=== PATIENT | male | born 1935 | race Caucasian/White ===

== ENCOUNTER → 2017-10-12 | Outpatient (CLI) | payer MEDICARE, OTHER ==
[~2017-10-12] MED LIST: ASPIRIN ADULT L81 M1 PO; GLYBURIDE1.25 MG PO; METFORMIN500 MG PO; METOPROLOL SUC100 M2 PO; OXYBUTYNIN CHLOR5 MG PO; ZESTRIL5 MG PO; ZOCOR80 MG PO
== END | disposition home or self-care (01) ==
LOC: RAD 10:40
DX: J44.9 Chronic obstructive pulmonary disease, unspecified (principal); R06.00 Dyspnea, unspecified; E11.9 Type 2 diabetes mellitus without complications; I10 Essential (primary) hypertension; I25.10 Atherosclerotic heart disease of native coronary artery without angina pectoris; Z87.891 Personal history of nicotine dependence

== ENCOUNTER 2017-11-05 12:35 | Inpatient (IN) | payer MEDICARE ==
[~2017-11-05] VITALS: Ht 180.3 cm; Wt 84.0 kg
--- NOTE | ~2017-11-05 | PR ---
[place], [place] PROGRESS NOTE NAME: REYES SCHAEFFER UNIT #: [id number] ROOM: 524 DOCTOR: SAAD HARTLEY MD BIRTHDATE: [birth year] DOS: 11/08/2017 SUBJECTIVE: The patient is doing better. Liver biopsy was canceled because the patient is on aspirin and is scheduled for a liver biopsy on . PHYSICAL EXAMINATION: GENERAL: A pleasant gentleman, in no apparent distress. VITAL SIGNS: Stable. He is afebrile. Blood pressure 122/70, respirations 18, pulse 96, temperature 97.6. HEENT: Normocephalic, atraumatic NECK AND THYROID: Supple. No JVD, thyromegaly, or lymphadenopathy. HEART: Normal S1, S2. Regular rate and rhythm. LUNGS: Clear to auscultation and percussion. ABDOMEN: Soft. Nontender, nondistended. Bowel sounds present. EXTREMITIES: Normal ROM. No clubbing. No edema. LABORATORY DATA: White count of 7.3, hemoglobin 12.5, hematocrit 38.0, platelet count 187. Sodium 136, potassium 3.7, chloride 101, bicarbonate 29, EGFR more than 60. Ejection fraction of 20%. 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 PLAN: We will follow him as an outpatient after the biopsy is done. Depending on it, further intervention. Discussed with the patient. SAAD HARTLEY MD CM:PNTRANS [id number] SAAD HARTLEY MD 11/09/17 0023 interface
--- NOTE | ~2017-11-05 | CON ---
[place], [place] REPORT OF CONSULTATION NAME: REYES SCHAEFFER UNIT #: [id number] ROOM: 524 DOCTOR: SAAD HARTLEY MD BIRTHDATE: [birth year] DOS: 11/07/2017 HISTORY OF PRESENT ILLNESS: The patient is a pleasant 82-year-old gentleman who looks younger than his stated age. He states that he had flu in August and the symptoms resolved, but he started complaining of feeling progressively weaker since then. He also had some trouble walking and had several falls. On the day of admission, he fell twice and subsequently he has lost about 40 pounds since August and has swelling in the lower extremity. Subsequently, he was given to the ER and had a CT of the chest, abdomen, and pelvis done, which showed possible metastatic ____ to the liver. Of unknown primary and was consulted for further evaluation and management. PAST MEDICAL HISTORY: Significant for basal cell carcinoma, coronary artery disease, diabetes mellitus type 2, hyperlipidemia, hypertension, and myocardial infarction. PAST SURGICAL HISTORY: Coronary artery bypass graft ____ disease, had a ____ colonoscopy. SOCIAL HISTORY: No smoking, drinking, or drug abuse. He used to smoke for 10 years, quit 50 years ago. FAMILY HISTORY: Father at 89. Mother at 65 of colon cancer. ALLERGIES: No known allergies. MEDICATIONS: Aspirin, furosemide, glyburide, levothyroxine, lisinopril, metformin, metoprolol, simvastatin. REVIEW OF SYSTEMS CONSTITUTIONAL: No chills. No fatigue. No fever. No loss of appetite. No night sweats. No weakness. No weight loss. HEENT: No trouble swallowing. No loss of smell. No loss of hearing. No double vision. No pain. No discharge. ENT AND RESPIRATORY: No wheeze. No sore throat. No change in voice. No hearing loss. No nose bleed. No cough. No trouble breathing through nose. No shortness of breath. No coughing up blood. No epistaxis. CARDIOVASCULAR: No chest pain. No dizziness. No irregular heartbeat. No leg edema. No pain in legs while walking. No palpitations. No shortness of breath. DERMATOLOGIC: No acne. No hives. No laceration. No mole. No rash. ENDOCRINE: No cold intolerance. No diabetes. No fatigue. No hot flashes. No polydipsia. No polyuria. No urinating frequently. No weight loss. HEMATOLOGIC AND LYMPH: No fatigue. No easy bruising. GASTROENTEROLOGIC: No change in bowel habits. No indigestion. No frequent bloating. No vomiting blood. No abdominal cramping. No nausea. No heartburn. No vomiting. No abdominal pain. No dysphagia. No diarrhea. No constipation. No blood in stool. MALE REPRODUCTIVE: No testicular pain. No difficulty with erection. No diminished sexual drive. No penile discharge. [place], [place] REPORT OF CONSULTATION NAME: REYES SCHAEFFER UNIT #: [id number] ROOM: 524 DOCTOR: SAAD HARTLEY MD BIRTHDATE: [birth year] MUSCULOSKELETAL: No back pain. No muscle pain or weakness. No neck pain. No tingling/numbness. No swelling/bruising. No osteoporosis treatment. OPTHALMOLOGIC: No double vision. No diminished vision. No loss of vision. UROLOGIC: No dysuria. No frequent nighttime urination. No pain with urination. No difficulty urinating. No blood in urine. No frequent urination. No urinary incontinence. NEUROLOGIC: No loss of sensation in specific body area. No vertigo. No burning pain in feet. No trouble with balance. No trouble with coordination. No loss of consciousness. No loss of feeling/power. No confusion. No headache. No tingling/numbness. PSYCHOLOGIC: No tinnitus. No headaches. No shortness of breath. No weight decrease. No nausea. No vomiting. No abdominal discomfort. No constipation. No diarrhea. No depression. No anxiety. PHYSICAL EXAMINATION: VITAL SIGNS: Stable. Afebrile. GENERAL: General appearance: Pleasant gentleman, no apparent distress. HEENT: Oral mucosa appears intact. The external ears are normal in appearance. Nares are patent without lesions, exudates, erythema, or inflammation. Tongue is symmetrical. Uvula is midline. NECK AND THYROID: Neck supple without palpable masses. Trachea is midline. No thyromegaly. No carotid bruit or JVD. BREASTS: Normal. Nipples unremarkable. No drainage. No lumps felt on either side. HEART: Normal S1, S2, without significant murmur, rub, or gallop. LUNGS: Clear to auscultation and percussion with good air entry bilaterally. The patient is breathing easily without the use of accessory muscles. Diaphragmatic excursions are intact. ABDOMEN: No costovertebral angle tenderness. Soft. No organomegaly or masses. Nontender. No hernias present. Liver and spleen are not palpable. LYMPHATIC: No adenopathy noted in the cervical, supraclavicular, axillary, or inguinal regions. NEUROLOGIC: Nonfocal. Oriented to person, place, and time. MENTAL STATUS: Appropriate for mood and affect. PERIPHERAL PULSES: No varicosities. Femoral and pedal pulses are palpable. EXTREMITIES: Without cyanosis, clubbing, or edema. No gross anomalies. LABORATORY DATA: On 11/05/2017. Sodium 139, potassium 4.8, chloride 104, bicarbonate 26. EGFR more than 60. White count of 7.7, hemoglobin 13.3, hematocrit 39.3, platelet count of 321,000. RADIOLOGY: CT of the chest showed some pleural based nodularity. There are two right-sided 5-mm nodules. There is a perifissural nodule in the right measuring 7 mm of the scarring in the right lung base. CT of the abdomen showed multiple low attenuation lesions throughout the liver, most compatible with metastases, largest in the right lobe measures 6.5 cm and there was also some punctate calculi in the right kidney without obstruction. There are also some retroperitoneal lymph nodes as well as small abdominal ascites and moderate amount of pelvic ascites. [place], [place] REPORT OF CONSULTATION NAME: REYES SCHAEFFER UNIT #: [id number] ROOM: 524 DOCTOR: SAAD HARTLEY MD BIRTHDATE: [birth year] ASSESSMENT: 1. Possible metastatic disease to the liver of unknown primary. 2. Generalized weakness with 40-pound weight loss since August. 3. Nonspecific elevation of transaminases and lactic acid dehydrogenase. PLAN: I have discussed with the patient in detail. We will go ahead with CT-guided biopsy of the liver. He may also need upper and lower endoscopy that can be done as an outpatient. Tumor markers have been ordered depending on the further intervention. I had a detailed discussion with the patient about it, he seemed to understand. Ample time was given to the patient to ask me questions. We will follow. Thanks for consulting and letting me participating in the care of this interesting patient. SAAD HARTLEY MD CM:CONSTR:REPORT OF CONSULTATION 1434 11/08/17 0501 interface
[2017-11-05 12:50] VITALS: BP 138/85
[2017-11-05 13:14] LABS: BILIRUBIN NEGATIVE (NEGATIVE); BLOOD NEGATIVE (NEGATIVE); CLARITY SL CLOUDY (CLEAR); COLOR YELLOW (YELLOW); GLUCOSE NEGATIVE (NEGATIVE); KETONE NEGATIVE (NEGATIVE); LEUKO ESTERASE NEGATIVE (NEGATIVE); NITRITE NEGATIVE (NEGATIVE); PH 5.5 (5.0-9.0)
[2017-11-05 13:23] LABS: BASO % 0.3 % (0.0-1.0); EOS # 0.1 10*3/uL (0.0-0.4); EOS % 1.4 % (1.0-4.0); HEMATOCRIT 39.3 % (42.0-52.0); HEMOGLOBIN 13.3 g/dl (14.0-18.0); LYMPH # 1.6 10*3/uL (1.3-4.4); LYMPH % 21.2 % (27.0-41.0); MEAN CELL VOLUME 92.5 fl (80.0-94.0); MEAN CORPUSCULAR HGB 31.3 pg (27.0-31.0); MEAN CORPUSCULAR HGB CONC 33.8 g/dl (33.0-37.0); MEAN PLATELET VOLUME 12.7 fl (9.6-12.3); MONO # 0.9 10*3/uL (0.1-1.0); MONO % 12.1 % (3.0-9.0); NEUT % 64.6 % (47.0-73.0); PLATELET COUNT AUTOMATED 321 10*3/uL (130-400); RED BLOOD COUNT 4.25 10*6/uL (4.50-5.90); RED CELL DISTRI WIDTH 15.3 % (0-14.5); WHITE BLOOD COUNT 7.7 10*3/uL (4.8-10.8)
[2017-11-05 13:30] VITALS: BP 138/84
[2017-11-05 13:30] LABS: BACTERIA TRACE; MUCOUS 1+
[2017-11-05 14:16] LABS: ALBUMIN 2.4 gm/dl (3.1-4.5); ALKALINE PHOSPHATASE 182 U/L (45-117); BUN 22 mg/dl (7-24); CHLORIDE 104 mmol/L (98-107); CREATININE 1.07 mg/dL (0.70-1.30); POTASSIUM 4.8 mmol/L (3.5-5.1); SGOT/AST 87 IU/L (3-35); SGPT/ALT 20 U/L (12-78); SODIUM 139 mmol/L (136-145)
[2017-11-05 14:28] VITALS: BP 121/71
[2017-11-05 15:27] VITALS: BP 134/80
[2017-11-05 16:20] VITALS: BP 142/79
[2017-11-05] MEDS ORDERED: ZESTRIL10 MG PO (16:31)
[2017-11-05] MEDS ORDERED: Metoprolol Suc200 MG PO (16:33)
[2017-11-05] MEDS ORDERED: FUROSEMIDE20 M1 PO (16:35)
[2017-11-05] MEDS ORDERED: SYNTHROID25 MCG PO (16:37)
[2017-11-05 20:00] VITALS: BP 131/67
[2017-11-06] VITALS: BP 131/78
[2017-11-06 06:56] LABS: BASO % 0.3 % (0.0-1.0); EOS # 0.1 10*3/uL (0.0-0.4); EOS % 1.9 % (1.0-4.0); HEMATOCRIT 40.1 % (42.0-52.0); HEMOGLOBIN 13.2 g/dl (14.0-18.0); LYMPH # 1.3 10*3/uL (1.3-4.4); LYMPH % 18.7 % (27.0-41.0); MEAN CELL VOLUME 93.5 fl (80.0-94.0); MEAN CORPUSCULAR HGB 30.8 pg (27.0-31.0); MEAN CORPUSCULAR HGB CONC 32.9 g/dl (33.0-37.0); MEAN PLATELET VOLUME 11.3 fl (9.6-12.3); MONO % 14.5 % (3.0-9.0); NEUT # 4.5 10*3/uL (2.3-7.9); RED BLOOD COUNT 4.29 10*6/uL (4.50-5.90); RED CELL DISTRI WIDTH 14.9 % (0-14.5)
[2017-11-06 06:58] LABS: PLATELET COUNT AUTOMATED 192 10*3/uL (130-400)
[2017-11-06 07:02] LABS: BUN 18 mg/dl (7-24); CHLORIDE 103 mmol/L (98-107); CHOLESTEROL 91 mg/dL (<200); CREATININE 0.98 mg/dL (0.70-1.30); HDL CHOLESTEROL 23 mg/dl (40-60); LDL CHOLESTEROL 45 mg/dL (9-159); PHOSPHOROUS 2.6 mg/dL (2.5-4.9); TRIGLYCERIDES 116 mg/dl (<150); VLDL CHOLESTEROL 23 mg/dL (6-40)
[2017-11-06 07:17] LABS: SODIUM 139 mmol/L (136-145)
[2017-11-06 07:20] LABS: POTASSIUM 3.7 mmol/L (3.5-5.1)
[2017-11-06 07:24] LABS: VITAMIN D, 25-HYDROXY 26.1 ng/mL (30-100)
[2017-11-06 08:00] VITALS: BP 121/76
[2017-11-06 14:00] VITALS: BP 123/66
[2017-11-06 16:00] VITALS: BP 134/71
[2017-11-06 20:00] VITALS: BP 134/80
[2017-11-07] VITALS: BP 125/76
[2017-11-07 06:11] LABS: BASO % 0.4 % (0.0-1.0); EOS # 0.1 10*3/uL (0.0-0.4); EOS % 1.9 % (1.0-4.0); HEMATOCRIT 37.4 % (42.0-52.0); HEMOGLOBIN 12.4 g/dl (14.0-18.0); LYMPH # 1.5 10*3/uL (1.3-4.4); LYMPH % 20.6 % (27.0-41.0); MEAN CELL VOLUME 92.8 fl (80.0-94.0); MEAN CORPUSCULAR HGB 30.8 pg (27.0-31.0); MEAN CORPUSCULAR HGB CONC 33.2 g/dl (33.0-37.0); MEAN PLATELET VOLUME 11.2 fl (9.6-12.3); MONO # 1.1 10*3/uL (0.1-1.0); MONO % 15.5 % (3.0-9.0); NEUT # 4.4 10*3/uL (2.3-7.9); NEUT % 61.3 % (47.0-73.0); PLATELET COUNT AUTOMATED 186 10*3/uL (130-400); RED BLOOD COUNT 4.03 10*6/uL (4.50-5.90); RED CELL DISTRI WIDTH 14.6 % (0-14.5); WHITE BLOOD COUNT 7.2 10*3/uL (4.8-10.8)
[2017-11-07 06:44] LABS: ALBUMIN 2.4 gm/dl (3.1-4.5); ALKALINE PHOSPHATASE 184 U/L (45-117); BUN 18 mg/dl (7-24); CHLORIDE 102 mmol/L (98-107); CREATININE 0.98 mg/dL (0.70-1.30); POTASSIUM 3.6 mmol/L (3.5-5.1); SGOT/AST 70 IU/L (3-35); SGPT/ALT 20 U/L (12-78); SODIUM 139 mmol/L (136-145)
[2017-11-07 08:00] VITALS: BP 122/80
[2017-11-07 09:16] LABS: ACT PARTIAL THROMBO TIME 24.9 SECONDS (20.8-31.5); INTERNATIONAL NORM RATIO 1.2 (2.0-3.5)
[2017-11-07 12:00] VITALS: BP 136/82
[2017-11-07 16:00] VITALS: BP 106/72
[2017-11-07 20:00] VITALS: BP 107/63
[2017-11-08 02:45] VITALS: BP 113/62
[2017-11-08 03:24] LABS: BASO % 0.5 % (0.0-1.0); EOS # 0.2 10*3/uL (0.0-0.4); HEMOGLOBIN 12.5 g/dl (14.0-18.0); LYMPH # 1.6 10*3/uL (1.3-4.4); LYMPH % 21.6 % (27.0-41.0); MEAN CELL VOLUME 93.4 fl (80.0-94.0); MEAN CORPUSCULAR HGB 30.7 pg (27.0-31.0); MEAN CORPUSCULAR HGB CONC 32.9 g/dl (33.0-37.0); MEAN PLATELET VOLUME 10.9 fl (9.6-12.3); MONO % 13.7 % (3.0-9.0); NEUT # 4.4 10*3/uL (2.3-7.9); NEUT % 60.7 % (47.0-73.0); PLATELET COUNT AUTOMATED 187 10*3/uL (130-400); RED BLOOD COUNT 4.07 10*6/uL (4.50-5.90); RED CELL DISTRI WIDTH 14.8 % (0-14.5); WHITE BLOOD COUNT 7.3 10*3/uL (4.8-10.8)
[2017-11-08 03:35] LABS: BUN 22 mg/dl (7-24); CHLORIDE 101 mmol/L (98-107); PHOSPHOROUS 2.8 mg/dL (2.5-4.9); POTASSIUM 3.7 mmol/L (3.5-5.1); SODIUM 136 mmol/L (136-145)
[2017-11-08 08:00] VITALS: BP 122/70
[2017-11-08] MEDS ORDERED: TOPROL XL50 M1 PO (10:33)
[2017-11-08 12:00] VITALS: BP 125/70
== END 2017-11-08 13:19 | disposition other institution (70) | DRG 435 ==
LOC: ED 12:35 → EDHOLD 14:36 → 5E 14:36
PROVIDERS: Emergency Medicine; Internal Medicine; Internal Medicine Hospice and Palliative Medicine; Student in an Organized Health Care Education/Training Program
DX: C78.7 Secondary malignant neoplasm of liver and intrahepatic bile duct (principal); E43 Unspecified severe protein-calorie malnutrition; R65.10 Systemic inflammatory response syndrome (SIRS) of non-infectious origin without acute organ dysfunction; D64.9 Anemia, unspecified; C80.1 Malignant (primary) neoplasm, unspecified; E11.9 Type 2 diabetes mellitus without complications; C44.91 Basal cell carcinoma of skin, unspecified; R60.0 Localized edema; Z95.1 Presence of aortocoronary bypass graft; D72.810 Lymphocytopenia; E78.5 Hyperlipidemia, unspecified; R62.7 Adult failure to thrive; R26.2 Difficulty in walking, not elsewhere classified; W18.30XA Fall on same level, unspecified, initial encounter; I25.10 Atherosclerotic heart disease of native coronary artery without angina pectoris; R74.0 Nonspecific elevation of levels of transaminase and lactic acid dehydrogenase [LDH]; E55.9 Vitamin D deficiency, unspecified; I10 Essential (primary) hypertension; I25.2 Old myocardial infarction; Z87.891 Personal history of nicotine dependence; Z80.0 Family history of malignant neoplasm of digestive organs; Z79.899 Other long term (current) drug therapy; Z79.82 Long term (current) use of aspirin; Y93.89 Activity, other specified; Y92.89 Other specified places as the place of occurrence of the external cause; Y99.8 Other external cause status; Z68.25 Body mass index [BMI] 25.0-25.9, adult